=== PATIENT | female | born 1940 | race Caucasian/White ===

== ENCOUNTER 2017-12-09 10:19 | Emergency (ER) | payer MEDICARE ==
[2017-12-09] MEDS: NS 1,000 ML IV ×2 (10:24)
[2017-12-09 11:10] LABS: BASO % 0.4 % (0.0-1.0); EOS # 0.2 10^3/uL (0.0-0.50); EOS % 1.7 % (0.0-3.0); HEMATOCRIT 39.1 % (36.0-47.0); HEMOGLOBIN 12.8 g/dl (12.0-15.5); IMMATURE GRANULOCYTE % 0.5 % (0-3.0); LYMPH # 1.5 10^3/uL (1.5-4.5); LYMPH % 14.8 % (24.0-44.0); MEAN CORPUSCULAR HEMOGLOBIN 30.6 pg (27.0-33.0); MEAN CORPUSCULAR HGB CONC 32.7 g/dl (32.0-36.5); MEAN CORPUSCULAR VOLUME 93.5 fl (80.0-96.0); MONO # 1.2 10^3/uL (0.0-0.8); NEUTROPHILS # 7.1 10^3/uL (1.8-7.7); NEUTROPHILS % 70.6 % (36.0-66.0); PLATELET COUNT, AUTOMATED 248 10^3/uL (150-450); RED BLOOD COUNT 4.18 10^6/uL (4.00-5.40); RED CELL DISTRIBUTION WIDTH 13.5 % (11.5-14.5)
[2017-12-09 11:50] LABS: ALBUMIN 3.4 GM/DL (3.2-5.2); ALBUMIN/GLOBULIN RATIO 0.85 (1.00-1.93); ALKALINE PHOSPHATASE 44 U/L (45-117); ALT/SGPT 20 U/L (12-78); ANION GAP 7 MEQ/L (8-16); AST/SGOT 18 U/L (7-37); BILIRUBIN,DIRECT 0.2 MG/DL (0.0-0.2); BILIRUBIN,TOTAL 0.7 MG/DL (0.2-1.0); BLOOD UREA NITROGEN 28 MG/DL (7-18); CALCIUM LEVEL 8.2 MG/DL (8.8-10.2); CARBON DIOXIDE LEVEL 27 MEQ/L (21-32); CHLORIDE LEVEL 106 MEQ/L (98-107); CPK CREATINE PHOSPHOKINASE 127 U/L (26-192); CREATININE FOR GFR 1.12 MG/DL (0.55-1.30); GLUCOSE, FASTING 123 MG/DL (70-100); LIPASE 425 U/L (73-393); SODIUM LEVEL 140 MEQ/L (136-145); TOTAL PROTEIN 7.4 GM/DL (6.4-8.2); TROPONIN I < 0.02 NG/ML (< 0.10)
[2017-12-09 11:55] LABS: CK-MB VALUE MASS 2.8 NG/ML (<3.6)
[2017-12-09] MEDS: NS 500 ML IV ×2 (14:26)
[2017-12-09 17:15] LABS: CPK CREATINE PHOSPHOKINASE 117 U/L (26-192); TROPONIN I < 0.02 NG/ML (< 0.10)
[2017-12-09 17:16] LABS: CK-MB VALUE MASS 2.7 NG/ML (<3.6)
== END 2017-12-09 18:23 | disposition home or self-care (01) ==
LOC: M ED 10:19
DX: R55 Syncope and collapse (principal); E11.9 Type 2 diabetes mellitus without complications; I10 Essential (primary) hypertension; E78.5 Hyperlipidemia, unspecified; F33.9 Major depressive disorder, recurrent, unspecified; F41.9 Anxiety disorder, unspecified; Z79.82 Long term (current) use of aspirin; Z79.899 Other long term (current) drug therapy; Z87.42 Personal history of other diseases of the female genital tract
CPT/HCPCS: 71046

== ENCOUNTER → 2018-07-04 | Outpatient (CLI) | payer MEDICARE | LOC: M CLY 14:20 | DX: J22 Unspecified acute lower respiratory infection (principal) | CPT/HCPCS: 71046 ==

== ENCOUNTER → 2018-09-14 | Outpatient (REF) | payer MEDICARE ==
[~2018-09-14] MED LIST: /CELE20CA; /WARF25TA; ANTI25TA PO; ASPI325T; ASPI325T PO; ATOR40TA PO; BENA40TA2 PO; CALCCHW12; CEFT500T; DARV100T; GLIM1TAB PO; HYDR12.55 PO; LOPR50TA; MAGN250T14 PO; MAGN500T2; METF500T PO; MULTIVIT PO; PAXI20TA PO; PERC5TAB8; PREV15CA PO; PROV90AE; SIMV40TA2 PO; SIMV80TA; STOO100C PO; TEMA15CA2 PO; [UNRECOGNIZED DRUG - CODE] PO
[2018-09-14 18:04] LABS: ALBUMIN 3.6 GM/DL (3.2-5.2); BILIRUBIN,TOTAL 0.8 MG/DL (0.2-1.0); CALCIUM LEVEL 9.3 MG/DL (8.8-10.2); CREATININE FOR GFR 1.45 MG/DL (0.55-1.30); POTASSIUM SERUM 4.5 MEQ/L (3.5-5.1); THYROID STIMULATING HORMONE 2.33 uIU/ML (0.358-3.740); THYROXINE (T4) 6.4 UG/DL (4.5-12.0); TOTAL PROTEIN 7.1 GM/DL (6.4-8.2)
== END ==
LOC: M LABDRWCV 17:28
PROVIDERS: ATTEND Family Medicine
DX: I11.9 Hypertensive heart disease without heart failure (principal); E11.65 Type 2 diabetes mellitus with hyperglycemia; E03.9 Hypothyroidism, unspecified

== ENCOUNTER → 2018-12-12 | Outpatient (REF) | payer MEDICARE ==
[~2018-12-12] MED LIST changes: -/CELE20CA; -/WARF25TA; +CELE1CAP4; +COUM1TAB18
[2018-12-12 17:14] LABS: ALBUMIN 3.7 GM/DL (3.2-5.2); BILIRUBIN,TOTAL 0.9 MG/DL (0.2-1.0); CALCIUM LEVEL 9.4 MG/DL (8.8-10.2); CHOLESTEROL RISK RATIO 3.867 (<5); CREATININE FOR GFR 1.43 MG/DL (0.55-1.30); GLOMERULAR FILTRATION RATE 37.6 (>32); POTASSIUM SERUM 4.3 MEQ/L (3.5-5.1); TOTAL PROTEIN 7.2 GM/DL (6.4-8.2)
[2018-12-12 18:17] LABS: HEMOGLOBIN A1c 6.8 %
== END ==
LOC: M LABDRAWC 16:18
PROVIDERS: ATTEND Family Medicine
DX: E11.65 Type 2 diabetes mellitus with hyperglycemia (principal); E78.5 Hyperlipidemia, unspecified

== ENCOUNTER 2019-02-03 19:22 | Inpatient (IN) | payer MEDICARE ==
[~2019-02-03] VITALS: Ht 160 cm; Wt 82.6 kg
[2019-02-03] MEDS ORDERED: ONDA4TAB6 SL (19:40)
[2019-02-03] MEDS ORDERED: NEXI20CA PO (19:40)
[2019-02-03] MEDS ORDERED: SIMV40TA2 PO (19:40)
[2019-02-03] MEDS ORDERED: CHLO125TA PO (19:40)
[2019-02-03] MEDS ORDERED: SPIR-10 PO (19:40)
[2019-02-03] MEDS ORDERED: D 101000 PO (19:40)
[2019-02-03 20:08] LABS: BASO % 0.3 % (0.0-1.0); EOS # 0.2 10^3/uL (0.0-0.50); EOS % 2.1 % (0.0-3.0); HEMATOCRIT 35.5 % (36.0-47.0); HEMOGLOBIN 11.8 g/dl (12.0-15.5); LYMPH # 1.8 10^3/uL (1.5-4.5); LYMPH % 16.7 % (24.0-44.0); MEAN CORPUSCULAR HEMOGLOBIN 30.8 pg (27.0-33.0); MEAN CORPUSCULAR HGB CONC 33.2 g/dl (32.0-36.5); MEAN CORPUSCULAR VOLUME 92.7 fl (80.0-96.0); MONO # 1.8 10^3/uL (0.0-0.8); MONO % 16.7 % (0.0-5.0); NEUTROPHILS # 6.8 10^3/uL (1.8-7.7); NEUTROPHILS % 63.6 % (36.0-66.0); PLATELET COUNT, AUTOMATED 288 10^3/uL (150-450); RED BLOOD COUNT 3.83 10^6/uL (4.00-5.40); WHITE BLOOD COUNT 10.6 10^3/uL (4.0-10.0)
[2019-02-03 20:41] LABS: ALBUMIN 3.2 GM/DL (3.2-5.2); BILIRUBIN,DIRECT 0.1 MG/DL (0.0-0.2); BILIRUBIN,TOTAL 0.4 MG/DL (0.2-1.0); CALCIUM LEVEL 8.9 MG/DL (8.8-10.2); CREATININE FOR GFR 1.68 MG/DL (0.55-1.30); GLOMERULAR FILTRATION RATE 31.2 (>32); MAGNESIUM LEVEL 2.2 MG/DL (1.8-2.4); POTASSIUM SERUM 3.9 MEQ/L (3.5-5.1); TOTAL PROTEIN 6.7 GM/DL (6.4-8.2)
[2019-02-03] MEDS ORDERED: NS 500 ML IV ONE ×2 (20:45→22:15)
--- NOTE | 2019-02-03 22:37 | ECGEPIP ---
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
--- NOTE | 2019-02-03 23:45 | REPVR ---
EXAM: CT Abdomen and Pelvis Without Contrast EXAM DATE/TIME: 02/03/2019 10:17 PM CLINICAL HISTORY: 78 years old, female; Abdominal pain; Generalized; Additional info: Colic TECHNIQUE: Imaging protocol: Axial computed tomography images of the abdomen and pelvis without contrast. Coronal and sagittal reformatted images were created and reviewed. Radiation optimization: All CT scans at this facility use at least one of these dose optimization techniques: automated exposure control; mA and/or kV adjustment per patient size (includes targeted exams where dose is matched to clinical indication); or iterative reconstruction. COMPARISON: No relevant prior studies available. FINDINGS: ABDOMEN: Liver: Normal. No mass. Gallbladder and bile ducts: Normal. No calcified stones. No ductal dilation. Pancreas: Normal. No ductal dilation. Spleen: Normal. No splenomegaly. Adrenals: Normal. No mass. Kidneys and ureters: Normal. No hydronephrosis. Stomach and bowel: Moderate diverticulosis is present in the distal colon. No diverticulitis. Abnormal loop of small bowel in the left lower quadrant demonstrates marked wall thickening measuring 1.8 cm maximum thickness. Findings suspicious for a small bowel neoplasm. Several loops of small bowel proximally demonstrate wall thickening to a lesser degree. Evaluation limited due to lack of oral contrast media. Appendix: No evidence of appendicitis. PELVIS: Bladder: Unremarkable as visualized. Reproductive: Unremarkable as visualized. ABDOMEN and PELVIS: Intraperitoneal space: There is a segment of acute or subacute inflammation in the proximal right tata-colon without evidence of a drainable abscess or free air, consistent with acute or subacute diverticulitis. Bones/joints: Marked disc space narrowing L5-S1 with grade 2 anterolisthesis of L5 on S1 secondary to bilateral spondylolysis. The spine demonstrates moderate degenerative changes. Soft tissues: Unremarkable. Vasculature: The aorta demonstrates mild atherosclerotic calcification. Lymph nodes: Normal. No enlarged lymph nodes. Other findings: Osteoporosis. IMPRESSION: 1. Moderate diverticulosis is present in the distal colon. No diverticulitis. 2. Abnormal loop of small bowel in the left lower quadrant demonstrates marked wall thickening. Findings suspicious for a small bowel neoplasm. Several loops of small bowel proximally demonstrate wall thickening to a lesser degree. Evaluation limited due to lack of oral contrast media. 3. There is a segment of acute or subacute inflammation in the proximal right tata-colon without evidence of a drainable abscess or free air, consistent with acute or subacute diverticulitis. Electronically signed by: Wilfredo Gonzalez On 02/03/2019 23:45:08 PM
[2019-02-04] MEDS ORDERED: metroNIDAZOLE 750 MG in APPROPRIATE DILUENT 1 EA IV ONE ×2
[2019-02-04] MEDS ORDERED: CIPROFLOXACIN 400 MG in APPROPRIATE DILUENT 1 EA IV ONE ×2
[2019-02-04] MEDS ORDERED: MULTCAP PO (00:58)
[2019-02-04] MEDS ORDERED: NS 1,000 ML IV SCH (00:58)
[2019-02-04] MEDS ORDERED: ASPI-1 PO (00:58)
[2019-02-04] MEDS ORDERED: BENA40TA7 PO (00:58)
[2019-02-04] MEDS ORDERED: MAG-400T7 PO (00:58)
[2019-02-04] MEDS ORDERED: PARO20TA4 PO (00:58)
[2019-02-04] MEDS ORDERED: GLUCAGON FOR INJ 1 MG VIAL (J1610) SC PRN (01:00)
[2019-02-04] MEDS ORDERED: GLUCOSE 4 GM CHEW TABLET PO PRN (01:00)
[2019-02-04] MEDS ORDERED: DEXTROSE 50% 50 ML SYRINGE IV PRN (01:00)
[2019-02-04] MEDS ORDERED: TEMAZEPAM 15 MG CAP PO PRN (01:00)
[2019-02-04] MEDS ORDERED: ONDANSETRON 4 MG ORAL DISINTEGRATING TAB (Q0162 PER 1MG) SL PRN (01:00)
[2019-02-04 02:00] VITALS: BP 134/60
[2019-02-04] MEDS ORDERED: ACETAMINOPHEN TAB 650MG DOSE (2X325MG) PO PRN (02:30)
--- NOTE | 2019-02-04 02:31 | HPEPDOC ---
General Date of Admission Feb 04, 2019 at 00:18 Date of Service: Feb 04, 2019 Primary Care Physician: DYLON ELLISON M.D. Attending Physician: YANA MARTIN MD Chief Complaint The patient is a 78-year-old female admitted with a reason for visit of Diverticulitis. Source: Patient, Old records Exam Limitations: No limitations Associated Symptoms: Nausea History of Present Illness Ms. Soriano is an 78-year-old female who presents to [facility]'s Emergency Department with abdominal pain and diarrhea. Patient states that she developed nausea with eating on Wednesday. This was followed by crampy abdominal pain with liquid, non-bloody diarrhea. The abdominal pain is located across the abdomen diffusely and she feels as though her pain is intestinal. The pain is so severe that it "doubles her over." She states that the abdominal pain does improve with the bowel movements and that the diarrhea has been improving overall over the last 3 days. Patient states that she went to her physician's office on Wednesday and was told based on blood tests that she had that she was dehydrated. She was told to purchase Gatorade. Subsequently, she feels as though she needs to urinate all the time, but has urinary symptoms, such as dysuria, urinary urgency, or lower pelvic pain. She initially thought that she was having another ovarian cyst because the pain that she experienced was similar to the left lower quadrant pain she experienced when she had a left ovarian cyst. That required removal. She denies an overt fever, but states that her noted that she felt "hot." She admits to headache and back pain. Emergency Department evaluation revealed a mild leukocytosis of 10.6, an elevated creatinine level of 1.68 (baseline ~ 1), and a negative urinalysis. A CT of her abdomen and pelvis revealed "moderate diverticulosis is present in the distal colon. No diverticulitis. Abnormal loop of small bowel in the left lower quadrant demonstrates marked wall thickening. Findings suspicious for a small bowel neoplasm. Several loops of small bowel proximally demonstrate wall thickening to a lesser degree. Evaluation limited due to lack of oral contrast media. There is a segment of acute or subacute inflammation in the proximal right tata-colon without evidence of a drainable abscess or free air, consistent with acute or subacute diverticulitis." Hospitalist service was consulted and patient was admitted for further medical management. Home Medications Scheduled Aspirin (Aspirin) 325 Mg Tablet, 325 MG PO DAILY, (Reported) Benazepril HCl (Benazepril HCl) 40 Mg Tablet, 40 MG PO DAILY, (Reported) Cholecalciferol (Vitamin D3) (Vitamin D3) 1,000 Unit Capsule, 1,000 CAP PO DAILY, (Reported) UNSURE OF DOSE Ciprofloxacin HCl (Ciprofloxacin HCl) 500 Mg Tablet, 500 MG PO BID Esomeprazole Magnesium (Nexium) 20 Mg Capsule.dr, 40 MG PO DAILY, (Reported) Glimepiride (Glimepiride) 1 Mg Tab, 1 TAB PO DAILY, (Reported) Magnesium Oxide (Magnesium Oxide) 400 Mg Tablet, 400 MG PO DAILY, (Reported) Metronidazole (Metronidazole) 500 Mg Tablet, 500 MG PO TID Multivitamin (Multivitamins) 1 Each Capsule, 1 CAP PO DAILY, (Reported) Paroxetine HCl (Paroxetine) 20 Mg Tablet, 20 MG PO DAILY, (Reported) Simvastatin (Simvastatin) 40 Mg Tablet, 40 MG PO QHS, (Reported) Spironolactone (Spironolactone) 25 Mg Tablet, 12.5 TAB PO DAILY, (Reported) Scheduled PRN Ondansetron (Ondansetron Odt) 4 Mg Tab.rapdis, 4 MG SL Q6H PRN for NAUSEA, (Reported) Temazepam (Temazepam) 15 Mg Cap, 1 CAP PO QHS PRN for INSOMNIA, (Reported) Miscellaneous Medications Chlorthalidone (Chlorthalidone) 25 Mg Tablet, 12.5 MG PO, (Reported) Allergies Coded Allergies: No Known Allergies (Unverified , 02/03/19) GME ATTESTATION My faculty preceptor for this patient encounter was physically present during the encounter and was fully available. All aspects of the patient interview, examination, medical decision making process, and medical care plan development were reviewed and approved by the faculty preceptor. The faculty preceptor is aware and concurs with the plan as stated in the body of this note and will atte st to such by his/her cosignature. ATTENDING NOTE I performed a history and physical examination of the patient and discussed management with the resident. I reviewed the residents note and agree with the documented findings and plan of care. Past Medical History Medical History 1. HTN 2. DLP 3. DM 4. Arthritis 5. Depression 6. Anxiety 7. Hx of UTI 8. Insomnia Surgical History 1. Ovarian cyst resection, left 2. Tubal ligation, left 3. Tonsillectomy 4. Right total knee replacement 5. Left lower eyelid skin excision 6. Colonoscopy Family History Father: , 40s, pneumonia Mother: , 70, [place], emphysema Siblings - Brother: , 60, heart disease - Sister: , dementia Social History * Smoker: Denies Alcohol: occationally (one glass of wine with dinner, nightly) Drugs: denies Pets in the home: Cat(s) (Samantha) Lives independently with of 58 years. Have three adult children, two daughters and a son. All adult children are alive and healthy. She was previously employed at [employer] in [place]. She denies tobacco use, ever. She drinks one glass of wine before dinner every evening. She denies illicit drug use. A-FIB/CHADSVASC A-FIB History Current/History of A-Fib/PAF?: No Review of Systems Constitutional: Denies: Chills, Fever, Night Sweats, Weakness Eyes: Denies: Vision change, Conjunctivae inflammation, Eyelid inflammation, Redness ENT: Reports: Head Aches; Denies: Dysphagia, Sinus Congestion, Post Nasal Drip, Sore Throat, Epistaxis Skin: Denies: Rash, Lesions, Jaundice Pulmonary: Denies: Dyspnea, Cough, Pleuritic Chest Pain Cardiovascular: Denies: Chest Pain, Palpitations, Orthopnea, Paroxysmal Noc. Dyspnea, Edema, Lt Headedness Gastrointestinal: Reports: Nausea, Abdominal Pain (diffuse, crampy, "intestinal"), Diarrhea (liquid, non-bloody); Denies: Vomiting, Constipation, Melena, Hematochezia Genitourinary: Denies: Dysuria, Frequency, Incontinence, Hematuria, Retention Hematologic: Denies: Bruising, Bleeding Excessively Endocrine: Denies: Polydipsia, Polyphagia Musculoskeletal: Reports: Back Pain; Denies: Neck Pain, Joint Pain, Muscle Pain Neurological: Denies: Weakness, Numbness Physical Examination General Exam: Positive: Alert, Cooperative, No Acute Distress Eye Exam: Positive: PERRLA, Conjunctiva & lids normal, EOMI; Negative: Sclera icteric, Ptosis ENT Exam: Positive: Atraumatic, Pharynx Normal, Tongue Midline, Nares Patent; Negative: Mucous membr. moist/pink, Pharyngeal Edema Neck Exam: Positive: Supple, +2 carotid pulse wo bruit; Negative: JVD, thyromegaly, Lymphadenopathy Chest Exam: Positive: Clear to auscultation, Normal air movement; Negative: Rales, Rhonchi, Wheezing, Diminished Heart Exam: Positive: Rate Normal, Regular Rhythm, Normal S1, Normal S2; Negative: Gallops, Murmurs, Rubs Telemetry: Positive: Sinus Abdomen Exam: Positive: Normal bowel sounds, Soft; Negative: Tenderness, Hepatospenomegaly, Mass, Hernia Extremity Exam: Positive: Normal pulses; Negative: Clubbing, Cyanosis, Edema, Tenderness, Swelling Skin Exam: Negative: Rash, Lesion Neuro Exam: Positive: Normal Speech, Cranial Nerves 3-12 NL Psych Exam: Positive: Oriented x 3 Other physical findings 1. CT abdomen and pelvis without contrast - Moderate diverticulosis is present in the distal colon. No diverticulitis. Abnormal loop of small bowel in the left lower quadrant demonstrates marked wall thickening. Findings suspicious for a small bowel neoplasm. Several loops of small bowel proximally demonstrate wall thickening to a lesser degree. Evaluation limited due to lack of oral contrast media. There is a segment of acute or subacute inflammation in the proximal right tata-colon without evidence of a drainable abscess or free air, consistent with acute or subacute diverticulitis. Vital Signs Vital Signs Date Time Temp Pulse Resp B/P (MAP) Pulse Ox O2 Delivery O2 Flow Rate FiO2 02/04/19 01:16 98.3 70 18 95 Room Air 02/04/19 01:00 117/58 (77) Height (in): 63 Weight (kg): 78.2 BMI (kg): 30.5 Laboratory Data Labs 24H Laboratory Tests 2 02/03/19 19:56: Immature Granulocyte % (Auto) 0.6, White Blood Count 10.6H, Red Blood Count 3.83L, Hemoglobin 11.8L, Hematocrit 35.5L, Mean Corpuscular Volume 92.7, Mean Corpuscular Hemoglobin 30.8, Mean Corpuscular Hemoglobin Concent 33.2, Red Cell Distribution Width 13.2, Platelet Count 288, Neutrophils (%) (Auto) 63.6, Lymphocytes (%) (Auto) 16.7L, Monocytes (%) (Auto) 16.7H, Eosinophils (%) (Auto) 2.1, Basophils (%) (Auto) 0.3, Neutrophils # (Auto) 6.8, Lymphocytes # (Auto) 1.8, Monocytes # (Auto) 1.8H, Eosinophils # (Auto) 0.2, Basophils # (Auto) 0.0, Nucleated Red Blood Cells % (auto) 0.0, Anion Gap 10, Glomerular Filtration Rate 31.2L, Calcium Level 8.9, Magnesium Level 2.2, Aspartate Amino Transf (AST/SGOT) 20, Alanine Aminotransferase (ALT/SGPT) 25, Alkaline Phosphatase 53, Total Bilirubin 0.4, Direct Bilirubin 0.1, Total Protein 6.7, Albumin 3.2, Albumin/Globulin Ratio 0.91L, Lipase 347 02/03/19 21:13: Urine Color YELLOW, Urine Appearance CLEAR, Urine pH 5.0, Urine Specific [place] 1.013, Urine Protein NEGATIVE, Urine Glucose (UA) NEGATIVE, Urine Ketones NEGATIVE, Urine Blood NEGATIVE, Urine Nitrite NEGATIVE, Urine Bilirubin NEGATIVE, Urine Urobilinogen 0.2, Urine Leukocyte Esterase NEGATIVE, Urine WBC (Auto) 1, Urine RBC (Auto) 3, Urine Hyaline Casts (Auto) 3, Urine Bacteria (Auto) NEGATIVE, Urine Squamous Epithelial Cells 1, Urine Sperm (Auto) CBC/BMP Laboratory Tests 02/03/19 19:56 Red Blood Count 3.83 L, Mean Corpuscular Volume 92.7, Mean Corpuscular Hemogl obin 30.8, Mean Corpuscular Hemoglobin Concent 33.2, Red Cell Distribution Width 13.2, Neutrophils (%) (Auto) 63.6, Lymphocytes (%) (Auto) 16.7 L, Monocytes (%) (Auto) 16.7 H, Eosinophils (%) (Auto) 2.1, Basophils (%) (Auto) 0.3, Neutrophils # (Auto) 6.8, Lymphocytes # (Auto) 1.8, Monocytes # (Auto) 1.8 H, Eosinophils # (Auto) 0.2, Basophils # (Auto) 0.0 Plan / VTE VTE Prophylaxis Ordered?: Yes (Heparin 5,000 units SQ Q8H) Plan Plan 1. Abdominal pain with diarrhea - Likely secondary to diverticulitis. Obtaining GI panel to rule out infectious causes. NPO. May have sips to swallow medications. No need for surgical involvement at this time. Zosyn 3.375mg IV Q6H for anaerobic and gram negative coverage. Monitor leukocytosis with daily labs. Zofran for nausea. NS @ 125 mLs/hr. 2. LARRY - Likely result of dehydration from diarrhea. NS @ 125 mLs/hr. Monitor renal function with daily labs. Holding nephrotoxic agents. 3. HTN - Holding Benazepril, Spironolactone, and Chlorthalidone due to LARRY. Could consider resuming once LARRY resolves. 4. DM - Holding Glimepiride. FSBS Q6H, hypoglycemic protocol, SSI Q6H, NPO. Advance diet as tolerated. NS @ 125 mLs/hr. 5. DLP - Holding Simvastatin due to NPO. Could consider resuming once tolerating PO intake. 6. GERD - Holding Esomeprazole due NPO. Could consider resuming once tolerating PO intake. 7. Insomnia - Continue Temazepam 15mg PO QHSP. 8. Depression - Continue Paroxetine 20mg PO daily. Disposition Admit: Med/Surg Anticipated hospitalization: 2 nights IVF: Initiate (NS @ 125 mLs/hr) Diet: Make NPO Activity: Continue Current Therapy: PT Medications: Start Antibiotics (Zosyn 3.375mg IV Q6H) Diagnostics: Check Labs, Repeat Labs in AM, Other Diagnostics (GI panel) Anticipated Discharge: Home SIXTO DONIS DO Feb 04, 2019 02:31 YANA MARTIN MD Feb 04, 2019 19:00
[2019-02-04] MEDS: PIPERACILLIN/TAZOBACTAM SOD 3.375 GM in D5W MINI-BAG PLUS 50 ML IV SCH ×3 (02:56→14:06)
[2019-02-04 06:00] VITALS: BP 110/57
[2019-02-04] MEDS: HumaLOG INSULIN (NovoLOG) PER UNIT SC SCH ×4 (06:00→17:08)
[2019-02-04 06:15] LABS: HEMATOCRIT 33.8 % (36.0-47.0); HEMOGLOBIN 11.2 g/dl (12.0-15.5); MEAN CORPUSCULAR HEMOGLOBIN 31.5 pg (27.0-33.0); MEAN CORPUSCULAR HGB CONC 33.1 g/dl (32.0-36.5); MEAN CORPUSCULAR VOLUME 95.2 fl (80.0-96.0); PLATELET COUNT, AUTOMATED 260 10^3/uL (150-450); RED BLOOD COUNT 3.55 10^6/uL (4.00-5.40); WHITE BLOOD COUNT 9.8 10^3/uL (4.0-10.0)
[2019-02-04 06:39] LABS: CALCIUM LEVEL 8.4 MG/DL (8.8-10.2); CREATININE FOR GFR 1.26 MG/DL (0.55-1.30); GLOMERULAR FILTRATION RATE 43.5 (>32); POTASSIUM SERUM 3.4 MEQ/L (3.5-5.1)
[2019-02-04] MEDS: HEPARIN SOD (PORCINE) 5000 UNITS/ML VIAL SC SCH ×3 (07:21→22:25)
[2019-02-04] MEDS: KCL 40MEQ in NS 1000ML 1,000 ML IV SCH ×2 (08:15→17:15)
[2019-02-04] MEDS: PARoxetine 20 MG TAB PO SCH (08:15)
[2019-02-04] MEDS: ASPIRIN 325 MG TAB PO SCH (08:15)
[2019-02-04 14:00] VITALS: BP 107/68
--- NOTE | 2019-02-04 16:26 | IPNPDOC ---
Subjective Date Seen The patient was seen on 02/04/19. Subjective Chief Complaint/HPI Abdominal pain, nausea, dry heaving, diarrhea Events since last encounter I saw and examined the patient earlier today. The patient reports her nausea seems improved. Her abdominal pain also has improved at this time. The diarrhea seems to have slowed down as well. Denies any associated fevers/chills/sweats at this time. She is eager to start oral intakediscussed with her that we will start off with liquids and advance diet as tolerated. Reports she has been urinating quite a bit. Objective Physical Examination General Exam: Positive: Alert, Cooperative, No Acute Distress Eye Exam: Positive: PERRLA ENT Exam: Positive: Mucous membr. moist/pink Chest Exam: Positive: Clear to auscultation; Negative: Rales, Rhonchi, Wheezing Heart Exam: Positive: Rate Normal, Normal S1, Normal S2 Abdomen Exam: Positive: Soft, Tenderness (slight tenderness particularly in b ilateral lower quadrants), Other (no guarding or rigidity. Bowel sounds are present.) Neuro Exam: Positive: Other (awake, alert, oriented 3. Answering questions appropriately. Moving all 4 extremities.) Assessment /Plan Assessment CT scan abdomen and pelvis without contrast: IMPRESSION: 1. Moderate diverticulosis is present in the distal colon. No diverticulitis. 2. Abnormal loop of small bowel in the left lower quadrant demonstrates marked wall thickening. Findings suspicious for a small bowel neoplasm. Several loops of small bowel proximally demonstrate wall thickening to a lesser degree. Evaluation limited due to lack of oral contrast media. 3. There is a segment of acute or subacute inflammation in the proximal right tata-colon without evidence of a drainable abscess or free air, consistent with acute or subacute diverticulitis. Abdominal pain with diarrhea likely secondary to acute diverticulitis involving the right proximal hemicolon based on CT scan findings: -GI panel was positive for Campylobacter jejuni as well as enteropathogenic Escherichia coli -Antibiotic will be switched from Zosyn to IV Cipro and Flagyl - patient would benefit from total 7 day treatment -As noted, she will be started on full liquid dietadvance diet as tolerated -Patient still has some tenderness to palpation on abdomen but otherwise abdominal pain seems improved -Continue IV fluidstolerating oral intake well, may discontinue IV fluids later tonight -Continue Zofran as needed for nausea Acute kidney injury likely secondary to dehydration secondary to above: -Improved -Rate of IV fluids decreased -May discontinue if tolerating oral intake Left lower quadrant small bowel loop wall thickening: -Noted on CT scan as noted above -Patient's GI panel tested positive for Campylobacter jejuni as well as enteropathogenic Escherichia coli as noted above -Suspect may be related to the infection -Discussed with patient regarding this finding and recommended that she get repeat CT scan of her abdomen pelvis in 4-6 weeks as an outpatient for further evaluation. Patient does report that she is supposed to follow-up for outpatient colonoscopy in the near futureadvised her to discuss with her GI specialist regarding this as well. Hypokalemia: -Replete via IV fluids and recheck Hypertension: -Hold benazepril, spironolactone and chlorthalidone -May resume once tolerating oral intake well, if blood pressures are running elevated Diabetes mellitus type 2: -Continue sliding scale -Holding metformin Hyperlipidemia: -May resume statin once tolerating oral intake well GERD: -PPI Insomnia: -When necessary temazepam Depression: -Ct paroxetine DVT prophylaxis: -Subcutaneous heparin Disposition: Continue IV fluids, IV antibiotics. If patient is tolerating oral intake well by tomorrow, plan will be to transition her to oral antibiotics and possibly discharge home tomorrow. Plan/VTE VTE Prophylaxis Ordered?: Yes (Heparin 5,000 units SQ Q8H) Plan IVF: Initiate (NS @ 125 mLs/hr) Diet: Make NPO Activity: Continue Current Therapy: PT Medications: Start Antibiotics (Zosyn 3.375mg IV Q6H) Diagnostics: Check Labs, Repeat Labs in AM, Other Diagnostics (GI panel) Anticipated Discharge: Home VS, I&O, 24H, [place] Vital Signs/I&O Vital Signs Date Time Temp Pulse Resp B/P (MAP) Pulse Ox O2 Delivery O2 Flow Rate FiO2 02/04/19 14:00 97.1 67 20 107/68 (81) 95 02/04/19 06:00 2.0 02/04/19 01:16 Room Air I&O- Last 24 Hours up to 6 AM 02/04/19 06:00 Intake Total 1000 ml Output Total 450 ml Balance 550 ml Laboratory Data 24H LABS Laboratory Tests 2 02/03/19 19:56: Immature Granulocyte % (Auto) 0.6, White Blood Count 10.6H, Red Blood Count 3.83L, Hemoglobin 11.8L, Hematocrit 35.5L, Mean Corpuscular Volume 92.7, Mean Co rpuscular Hemoglobin 30.8, Mean Corpuscular Hemoglobin Concent 33.2, Red Cell Distribution Width 13.2, Platelet Count 288, Neutrophils (%) (Auto) 63.6, Lymphocytes (%) (Auto) 16.7L, Monocytes (%) (Auto) 16.7H, Eosinophils (%) (Auto) 2.1, Basophils (%) (Auto) 0.3, Neutrophils # (Auto) 6.8, Lymphocytes # (Auto) 1.8, Monocytes # (Auto) 1.8H, Eosinophils # (Auto) 0.2, Basophils # (Auto) 0.0, Nucleated Red Blood Cells % (auto) 0.0, Anion Gap 10, Glomerular Filtration Rate 31.2L, Calcium Level 8.9, Magnesium Level 2.2, Aspartate Amino Transf (AST/SGOT) 20, Alanine Aminotransferase (ALT/SGPT) 25, Alkaline Phosphatase 53, Total Bilirubin 0.4, Direct Bilirubin 0.1, Total Protein 6.7, Albumin 3.2, Alb umin/Globulin Ratio 0.91L, Lipase 347 02/03/19 21:13: Urine Color YELLOW, Urine Appearance CLEAR, Urine pH 5.0, Urine Specific [place] 1.013, Urine Protein NEGATIVE, Urine Glucose (UA) NEGATIVE, Urine Ketones NEGATIVE, Urine Blood NEGATIVE, Urine Nitrite NEGATIVE, Urine Bilirubin NEGATIVE, Urine Urobilinogen 0.2, Urine Leukocyte Esterase NEGATIVE, Urine WBC (Auto) 1, Urine RBC (Auto) 3, Urine Hyaline Casts (Auto) 3, Urine Bacteria (Auto) NEGATIVE, Urine Squamous Epithelial Cells 1, Urine Sperm (Auto) 02/04/19 05:46: Nucleated Red Blood Cells % (auto) 0.0, Anion Gap 8, Glomerular Filtration Rate 43.5, Calcium Level 8.4L, Blood Urea Nitrogen 35H, Creatinine 1.26, Sodium Level 142, Potassium Level 3.4L, Chloride Level 108H, Carbon Dioxide Level 26 02/04/19 12:20: Bedside Glucose (Misc Panel) 76L CBC/BMP Laboratory Tests 02/03/19 19:56 Red Blood Count 3.83 L, Mean Corpuscular Volume 92.7, Mean Corpuscular He moglobin 30.8, Mean Corpuscular Hemoglobin Concent 33.2, Red Cell Distribution Width 13.2, Neutrophils (%) (Auto) 63.6, Lymphocytes (%) (Auto) 16.7 L, Monocytes (%) (Auto) 16.7 H, Eosinophils (%) (Auto) 2.1, Basophils (%) (Auto) 0.3, Neutrophils # (Auto) 6.8, Lymphocytes # (Auto) 1.8, Monocytes # (Auto) 1.8 H, Eosinophils # (Auto) 0.2, Basophils # (Auto) 0.0 02/04/19 05:46 Red Blood Count 3.55 L, Mean Corpuscular Volume 95.2, Mean Corpuscular Hemoglobin 31.5, Mean Corpuscular Hemoglobin Concent 33.1, Red Cell Distribution Width 13.1, Calcium Level 8.4 L Microbiology Microbiology 02/04/19 Gastrointestinal Tract Panel (PCR) - Final, Complete Campylobacter Enteropathogenic E.coli LENA ALCANTAR MD Feb 04, 2019 16:26
[2019-02-04] MEDS: OMEPRAZOLE 20 MG CAP PO SCH (17:14)
[2019-02-04] MEDS: CIPROFLOXACIN 400 MG in APPROPRIATE DILUENT 1 EA IV SCH (17:14)
[2019-02-04] MEDS ORDERED: HumaLOG INSULIN (NovoLOG) PER UNIT SC SCH (21:00)
[2019-02-04 22:00] VITALS: BP 124/59
[2019-02-04] MEDS: metroNIDAZOLE 500 MG in APPROPRIATE DILUENT 1 EA IV SCH (22:25)
[2019-02-05] MEDS: KCL 40MEQ in NS 1000ML 1,000 ML IV SCH (03:35)
[2019-02-05 06:00] VITALS: BP 126/60
[2019-02-05 06:05] LABS: BASO # 0.1 10^3/uL (0.0-0.2); BASO % 0.6 % (0.0-1.0); EOS # 0.4 10^3/uL (0.0-0.50); EOS % 4.8 % (0.0-3.0); HEMATOCRIT 32.9 % (36.0-47.0); HEMOGLOBIN 10.7 g/dl (12.0-15.5); LYMPH # 2.6 10^3/uL (1.5-4.5); LYMPH % 28.9 % (24.0-44.0); MEAN CORPUSCULAR HEMOGLOBIN 31.8 pg (27.0-33.0); MEAN CORPUSCULAR HGB CONC 32.5 g/dl (32.0-36.5); MEAN CORPUSCULAR VOLUME 97.6 fl (80.0-96.0); MONO # 1.4 10^3/uL (0.0-0.8); MONO % 15.1 % (0.0-5.0); NEUTROPHILS # 4.5 10^3/uL (1.8-7.7); NEUTROPHILS % 49.7 % (36.0-66.0); PLATELET COUNT, AUTOMATED 249 10^3/uL (150-450); RED BLOOD COUNT 3.37 10^6/uL (4.00-5.40)
[2019-02-05] MEDS: HEPARIN SOD (PORCINE) 5000 UNITS/ML VIAL SC SCH (06:15)
[2019-02-05] MEDS: CIPROFLOXACIN 400 MG in APPROPRIATE DILUENT 1 EA IV SCH (06:15)
[2019-02-05 06:32] LABS: ALBUMIN 2.7 GM/DL (3.2-5.2); BILIRUBIN,TOTAL 0.3 MG/DL (0.2-1.0); CALCIUM LEVEL 8.8 MG/DL (8.8-10.2); CREATININE FOR GFR 1.24 MG/DL (0.55-1.30); GLOMERULAR FILTRATION RATE 44.3 (>32); PHOSPHORUS LEVEL 2.8 MG/DL (2.5-4.9); POTASSIUM SERUM 5.1 MEQ/L (3.5-5.1); TOTAL PROTEIN 6.1 GM/DL (6.4-8.2)
[2019-02-05] MEDS: HumaLOG INSULIN (NovoLOG) PER UNIT SC SCH ×2 (07:29→11:11)
[2019-02-05] MEDS: ASPIRIN 325 MG TAB PO SCH (07:37)
[2019-02-05] MEDS: metroNIDAZOLE 500 MG in APPROPRIATE DILUENT 1 EA IV SCH (07:37)
[2019-02-05] MEDS: PARoxetine 20 MG TAB PO SCH (07:37)
[2019-02-05] MEDS: OMEPRAZOLE 20 MG CAP PO SCH (07:37)
[2019-02-05] MEDS ORDERED: CIPR500T3 PO (09:49)
[2019-02-05] MEDS ORDERED: METR-265 PO (09:49)
--- NOTE | 2019-02-05 17:08 | DS.PDOC ---
Discharge Summary General Date of Admission Feb 04, 2019 at 00:18 Date of Discharge 02/05/19 Discharge Summary PROCEDURES PERFORMED DURING STAY: None ADMITTING DIAGNOSES: Abdominal pain with diarrhea likely secondary to diverticulitis, acute kidney injury, hypertension, diabetes mellitus type 2, dyslipidemia, GERD, insomnia, depression DISCHARGE DIAGNOSES: Abdominal pain with diarrhea likely secondary to acute diverticulitis involving the right proximal hemicolon as well as Campylobacter jejuni /enteropathogenic Escherichia coli gastroenteritis now improved, acute kidney injury likely secondary to dehydration now improved, left lower quadrant small bowel loop wall thickening likely secondary to gastroenteritiswill require outpatient repeat CT scan abdomen/pelvis in 4-6 weeks, hypokalemia resolved, hypertension, diabetes mellitus type 2, hyperlipidemia, GERD, insomnia, depression COMPLICATIONS/CHIEF COMPLAINT: Diverticulitis. HISTORY OF PRESENT ILLNESS: The patient is a 78-year-old female who presented to the ER with compressive abdominal pain as well as diarrhea. In the ER, patient was noticed to have mild leukocytosis as well as elevated creatinine of 1.68 with baseline usually within normal limits. CT scan of her abdomen pelvis showed findings concerning for possible acute diverticulitis involving the proximal right hemicolon as well as showed an abnormal loop of small bowel in the left lower quadrant with marked wall thickening. The patient was admitted to our facility for further management. HOSPITAL COURSE: Abdominal pain with diarrhea likely secondary to acute diverticulitis involving the right proximal hemicolon as well as Campylobacter jejuni /enteropathogenic Escherichia coli gastroenteritis: -GI panel was positive for Campylobacter jejuni as well as enteropathogenic Escherichia coli -Was on IV Cipro and Flagyl - switched to oral ciprofloxacin and Flagyl for 7 day treatment on discharge -Once her symptoms had improved, patient was started on full liquid diet and diet was advanced as toleratedpatient is currently tolerating solid food. She has been recommended low fiber diet until her diverticulitis resolves. Thereafter, she may introduce fiber in her diet and eventually would benefit from a high-fiber diet -She was also treated with IV fluids and prn zofranshe is off the same as she is tolerating oral intake well today. Acute kidney injury likely secondary to dehydration secondary to above: -Improved -Creatinine down from 1.68 to 1.24 today -Tolerating oral intake well now and she is off IV fluids. Left lower quadrant small bowel loop wall thickening: -Noted on CT scan as noted above -Patient's GI panel tested positive for Campylobacter jejuni as well as enteropathogenic Escherichia coli as noted above -Suspect may be related to the infection/gastroenteritis -Discussed with patient regarding this finding and recommended that she get repeat CT scan of her abdomen pelvis in 4-6 weeks as an outpatient for further evaluation. Patient does report that she is supposed to follow-up for outpatient colonoscopy with Dr. Gonzalez in the near future. Hypokalemia: -Repleted and resolved Hypertension: -Held benazepril, spironolactone and chlorthalidone's patient presented with dehydration/LARRY on top of her diverticulitis -Resume on discharge as patient is tolerating oral intake well Diabetes mellitus type 2: -Resume metformin on discharge as his renal function has improved Hyperlipidemia: -Resume statin on discharge GERD: -PPI Insomnia: -When necessary temazepam Depression: -Ct paroxetine On day of discharge, patient is doing better. Abdominal pain has nearly resolved. She is tolerating oral intake well. Still has some diarrhea. No nausea or vomiting. She is able to ambulate without any problems. White count has normalized and patient has been afebrile. Plan is for the patient will be di scharged home on oral ciprofloxacin and Flagyl to be continued for another week. DISCHARGE MEDICATIONS: Please see below. ALLERGIES: Please see below. PHYSICAL EXAMINATION ON DISCHARGE: VITAL SIGNS: Please see below. GENERAL: Patient is lying in bed. No distress. HEENT: PERRLA, EOMI CARDIOVASCULAR EXAMINATION: S1, S2 heard, no rubs or gallops RESPIRATORY EXAMINATION: Clear to auscultation bilaterally ABDOMINAL EXAMINATION: Soft, no significant tenderness to palpation today. Bowel sounds are present. No guarding or rigidity. NEUROLOGICAL EXAMINATION: Moving all 4 extremities. Awake, alert and answering patient's appropriately. Speech is normal. PSYCHIATRIC EXAMINATION: Appropriate mood and affect LABORATORY DATA: Please see below. IMAGING: CT scan of abdomen pelvis without contrast IMPRESSION: 1. Moderate diverticulosis is present in the distal colon. No diverticulitis. 2. Abnormal loop of small bowel in the left lower quadrant demonstrates marked wall thickening. Findings suspicious for a small bowel neoplasm. Several loops of small bowel proximally demonstrate wall thickening to a lesser degree. Evaluation limited due to lack of oral contrast media. 3. There is a segment of acute or subacute inflammation in the proximal right tata-colon without evidence of a drainable abscess or free air, consistent with acute or subacute diverticulitis. PROGNOSIS: Fair ACTIVITY: As tolerated. DIET: Carbohydrate controlled. Low fiber diet until diverticulitis/gastroenter itis resolves DISCHARGE PLAN: Patient to discharge home today. Outpatient follow-up with Dr. Emmanuel tomorrow per her previous appointment and with Dr. Gonzalez for outpatient colonoscopy in 4-6 weeks. DISPOSITION: Home DISCHARGE INSTRUCTIONS: 1. Follow up with Dr Emmanuel tomorrow for your Diverticulitis and Campylobacter as well as EPEC (E coli) gastroenteritis. Please dicuss with Dr Emmanuel regarding repeating CT scan of abdomen/pelvis in 4-6 weeks to re-evaluate the small bowel loop with abnormal thickening in left lower part of abdomen noted on CT scan here - this may be related to the gastroenteritis, but may need to be rechecked. 2. Follow up with Dr Jewel Gonzalez for outpatient colonoscopy in 4-6 weeks ITEMS TO FOLLOWUP ON ON OUTPATIENT: 1. Repeat CT scan of abdomen/pelvis in 4-6 weeks to re-evaluate the small bowel loop with abnormal thickening in left lower part of abdomen noted on CT scan here 2. Outpatient colonoscopy in 4-6 weeks DISCHARGE CONDITION: Stable. TIME SPENT ON DISCHARGE: 38 minutes. Vital Signs/I&Os Vital Signs Date Time Temp Pulse Resp B/P (MAP) Pulse Ox O2 Delivery O2 Flow Rate FiO2 02/05/19 06:00 97.4 66 18 126/60 (82) 94 02/04/19 06:00 2.0 02/04/19 01:16 Room Air I&O- Last 24 Hours up to 6 AM 02/05/19 06:00 Intake Total 1995 ml Output Total 950 ml Balance 1045 ml Laboratory Data Labs 24H Laboratory Tests 2 02/04/19 12:20: Bedside Glucose (Misc Panel) 76L 02/04/19 16:50: Bedside Glucose (Misc Panel) 131H 02/04/19 21:09: Bedside Glucose (Misc Panel) 73L 02/05/19 05:08: Immature Granulocyte % (Auto) 0.9, White Blood Count 9.0, Red Blood Count 3.37L, Hemoglobin 10.7L, Hematocrit 32.9L, Mean Corpuscular Volume 97.6H, Mean Corpuscular Hemoglobin 31.8, Mean Corpuscular Hemoglobin Concent 32.5, Red Cell Distribution Width 13.2, Platelet Count 249, Neutrophils (%) (Auto) 49.7, Lymphocytes (%) (Auto) 28.9, Monocytes (%) (Auto) 15.1H, Eosinophils (%) (Auto) 4.8H, Basophils (%) (Auto) 0.6, Neutrophils # (Auto) 4.5, Lymphocytes # (Auto) 2.6, Monocytes # (Auto) 1.4H, Eosinophils # (Auto) 0.4, Basophils # (Auto) 0.1, Nucleated Red Blood Cells % (auto) 0.0, Anion Gap 5L, Glomerular Filtration Rate 44.3, Blood Urea Nitrogen 23H, Creatinine 1.24, Sodium Level 141, Potassium Level 5.1#, Chloride Level 110H, Carbon Dioxide Level 26, Calcium Level 8.8, Phosphorus Level 2.8, Aspartate Amino Transf (AST/SGOT) 19, Alanine Aminotransferase (ALT/SGPT) 22, Alkaline Phosphatase 45, Total Bilirubin 0.3, Total Protein 6.1L, Albumin 2.7L, Magnesium Level 2.0, Albumin/Globulin Ratio 0.79L CBC/BMP Laboratory Tests 02/05/19 05:08 Red Blood Count 3.37 L, Mean Corpuscular Volume 97.6 H, Mean Corpuscular Hemoglobin 31.8, Mean Corpuscular Hemoglobin Concent 32.5, Red Cell Distribution Width 13.2, Neutrophils (%) (Auto) 49.7, Lymphocytes (%) (Auto) 28.9, Monocytes (%) (Auto) 15.1 H, Eosinophils (%) (Auto) 4.8 H, Basophils (%) (Auto) 0.6, Neutrophils # (Auto) 4.5, Lymphocytes # (Auto) 2.6, Monocytes # (Auto) 1.4 H, Eosinophils # (Auto) 0.4, Basophils # (Auto) 0.1, Calcium Level 8.8, Phosphorus Level 2.8, Aspartate Amino Transf (AST/SGOT) 19, Alanine Aminotransferase (ALT/SGPT) 22, Alkaline Phosphatase 45, Total Bilirubin 0.3, Total Protein 6.1 L, Albumin 2.7 L FSBS Laboratory Tests Test 02/04/19 12:20 02/04/19 16:50 02/04/19 21:09 Range/Units Bedside Glucose (Misc Panel) 76 131 73 83-110 MG/DL Microbiology Microbiology 02/04/19 Gastrointestinal Tract Panel (PCR) - Final, Complete Campylobacter Enteropathogenic E.coli Discharge Medications Scheduled Aspirin (Aspirin) 325 Mg Tablet, 325 MG PO DAILY, (Reported) Benazepril HCl (Benazepril HCl) 40 Mg Tablet, 40 MG PO DAILY, (Reported) Cholecalciferol (Vitamin D3) (Vitamin D3) 1,000 Unit Capsule, 1,000 CAP PO DAILY, (Reported) UNSURE OF DOSE Ciprofloxacin HCl (Ciprofloxacin HCl) 500 Mg Tablet, 500 MG PO BID Esomeprazole Magnesium (Nexium) 20 Mg Capsule.dr, 40 MG PO DAILY, (Reported) Glimepiride (Glimepiride) 1 Mg Tab, 1 TAB PO DAILY, (Reported) Magnesium Oxide (Magnesium Oxide) 400 Mg Tablet, 400 MG PO DAILY, (Reported) Metronidazole (Metronidazole) 500 Mg Tablet, 500 MG PO TID Multivitamin (Multivitamins) 1 Each Capsule, 1 CAP PO DAILY, (Reported) Paroxetine HCl (Paroxetine) 20 Mg Tablet, 20 MG PO DAILY, (Reported) Simvastatin (Simvastatin) 40 Mg Tablet, 40 MG PO QHS, (Reported) Spironolactone (Spironolactone) 25 Mg Tablet, 12.5 TAB PO DAILY, (Reported) Scheduled PRN Ondansetron (Ondansetron Odt) 4 Mg Tab.rapdis, 4 MG SL Q6H PRN for NAUSEA, (Reported) Temazepam (Temazepam) 15 Mg Cap, 1 CAP PO QHS PRN for INSOMNIA, (Reported) Miscellaneous Medications Chlorthalidone (Chlorthalidone) 25 Mg Tablet, 12.5 MG PO, (Reported) Allergies Coded Allergies: No Known Allergies (Unverified , 02/03/19) LENA ALCANTAR MD Feb 05, 2019 09:54
== END 2019-02-05 12:20 | disposition home or self-care (01) | DRG 372 ==
LOC: M ED 19:22 → M ED INP 02-04 00:18 → M MSPAV 02-04 01:42
PROVIDERS: ADMIT Internal Medicine; ATTEND Internal Medicine
DX: A04.5 Campylobacter enteritis (principal); N17.9 Acute kidney failure, unspecified; K57.92 Diverticulitis of intestine, part unspecified, without perforation or abscess without bleeding; A04.4 Other intestinal Escherichia coli infections; I10 Essential (primary) hypertension; E78.5 Hyperlipidemia, unspecified; E11.9 Type 2 diabetes mellitus without complications; F32.9 Major depressive disorder, single episode, unspecified; E86.0 Dehydration; F41.9 Anxiety disorder, unspecified; K21.9 Gastro-esophageal reflux disease without esophagitis; E87.6 Hypokalemia; G47.00 Insomnia, unspecified; Z96.651 Presence of right artificial knee joint; Z79.82 Long term (current) use of aspirin; Z79.84 Long term (current) use of oral hypoglycemic drugs; Z79.899 Other long term (current) drug therapy

== ENCOUNTER → 2019-06-22 | Outpatient (REF) | payer MEDICARE ==
[~2019-06-22] MED LIST changes: +ASPI-1 PO; +BENA40TA7 PO; +CHLO125TA PO; +CIPR500T3 PO; +D 101000 PO; +MAG-400T7 PO; +METR-265 PO; +MULTCAP PO; +NEXI20CA PO; +ONDA4TAB6 SL; +PARO20TA4 PO; +SPIR-10 PO
[2019-06-22 17:41] LABS: BASO # 0.1 10^3/uL (0.0-0.2); BASO % 0.6 % (0.0-1.0); EOS # 0.3 10^3/uL (0.0-0.5); HEMATOCRIT 40.2 % (36.0-47.0); HEMOGLOBIN 12.8 g/dl (12.0-15.5); LYMPH # 2.1 10^3/uL (1.5-5.0); LYMPH % 22.7 % (24.0-44.0); MEAN CORPUSCULAR HEMOGLOBIN 31.2 pg (27.0-33.0); MEAN CORPUSCULAR HGB CONC 31.8 g/dl (32.0-36.5); MONO # 1.1 10^3/uL (0.0-0.8); MONO % 11.7 % (0.0-5.0); NEUTROPHILS # 5.6 10^3/uL (1.5-8.5); NEUTROPHILS % 61.7 % (36.0-66.0); PLATELET COUNT, AUTOMATED 286 10^3/uL (150-450); WHITE BLOOD COUNT 9.1 10^3/uL (4.0-10.0)
[2019-06-22 17:57] LABS: ALBUMIN 3.3 GM/DL (3.2-5.2); BILIRUBIN,TOTAL 0.8 MG/DL (0.2-1.0); CALCIUM LEVEL 8.5 MG/DL (8.8-10.2); CHOLESTEROL RISK RATIO 3.92 (<5); CREATININE FOR GFR 1.33 MG/DL (0.55-1.30); GLOMERULAR FILTRATION RATE 40.9 (>32); POTASSIUM SERUM 4.4 MEQ/L (3.5-5.1); THYROID STIMULATING HORMONE 3.51 uIU/ML (0.358-3.740); TOTAL PROTEIN 7.2 GM/DL (6.4-8.2)
[2019-06-22 18:16] LABS: MALB URINE SIEMENS 11.3 MG/L; MAU/CREAT RATIO 8.3 MCG/MG (0.0-30.0)
[2019-06-22 18:21] LABS: HEMOGLOBIN A1c 7.2 %
== END ==
LOC: M LABDRWCV 16:43
PROVIDERS: ATTEND Family Medicine
DX: I11.9 Hypertensive heart disease without heart failure (principal); E78.5 Hyperlipidemia, unspecified; E11.65 Type 2 diabetes mellitus with hyperglycemia

== ENCOUNTER → 2020-03-14 | Outpatient (CLI) | payer MEDICARE ==
[~2020-03-14] MED LIST changes: +BENA40TA5 PO; -BENA40TA7 PO; -GLIM1TAB PO; +GLIM1TAB4 PO; -SIMV40TA2 PO; +SIMV40TA20 PO
--- NOTE | 2020-03-14 09:10 | PFTRPT ---
Visit Date: 03/14/2020 Referring Doctor: Carito Mora MD Height: 62.50 Inches Weight: 179.00 Lbs BSA: 1.83 Diagnosis: R06.00 Pre and postbronchodilator study of excellent technical quality. Forced vital capacity normal. FEV1 in proportion. Obstructive index is therefore normal. Expiratory limb of the flow volume loop does suggest some degree of flow rate limitation. No significant bronchodilator response is identified. Total lung capacity is normal. Residual volume is in proportion. Diffusing capacity is reduced, but is appropriate for alveolar volume. Hemoglobin acceptable at 13.8. Airways resistance and conductance are normal. IMPRESSION: Nonspecific flow rate limitation with diffusing capacity impairment. Please correlate clinically. MTDD
== END ==
LOC: M CARPUL 08:16
PROVIDERS: ATTEND Internal Medicine Pulmonary Disease
DX: R06.00 Dyspnea, unspecified (principal)

== ENCOUNTER → 2020-03-24 | Outpatient (CLI) | payer MEDICARE ==
--- NOTE | 2020-05-17 14:50 | SLEEPCENT ---
DATE: 03/24/2020 ORDERED BY: Dr. Mora Nocturnal polysomnography was performed for evaluation of sleep physiology in this patient with a history of nonrestorative sleep and excessive somnolence. Seven hours and 33 minutes of data were reviewed. There were 347 minutes of sleep identified. Sleep latency was prolonged at 24.5 minutes. REM latency was mildly prolonged at 106 minutes. Sleep architecture was fair with four REM cycles. Overall sleep efficiency was 77.4%. The patient's electrocardiogram showed sinus rhythm with an average heart rate 76 beats per minutes. EEG showed normal waveforms for wake and sleep. There were 64 respiratory events identified of ten seconds in duration or greater for an apnea-hypopnea index of 11. The events were not exclusive to sleep stage nor body posture. They were primarily obstructive. Arousals from respiratory events were seen 3.3 times per hour and oxygen desaturations were seen below 90% with some limb activity and snoring noted. Other measures of sleep physiology were normal. IMPRESSION: Obstructive sleep apnea syndrome (G47.33), apnea-hypopnea index 11.1. RECOMMENDATIONS: The patient should be encouraged to return to [facility] for pressure therapy. In the interim, alcohol and sedative avoidance should be practiced and caution exercised during the operation of motor vehicles MTDD
== END ==
LOC: M SLEEP 20:00
PROVIDERS: ATTEND Internal Medicine Pulmonary Disease
DX: G47.30 Sleep apnea, unspecified (principal)